=== PATIENT | female | born 1975 | race Caucasian/White ===

== ENCOUNTER 2018-01-04 21:07 | Emergency (ER) | payer MEDICAID, OTHER ==
[~2018-01-04] VITALS: Ht 160 cm; Wt 58.0 kg
[~2018-01-04 21:07] MED LIST: IBUP-1984 PO; NO HOME MEDS; ONDA8TAB6 PO
[2018-01-04 21:11] VITALS: BP 135/79
[2018-01-04] MEDS ORDERED: CYCL-1 PO (21:29)
[2018-01-04] MEDS ORDERED: ketorolac trometh inj. 60 MG/2 ML VIAL IM ONE (21:30)
[2018-01-04] MEDS ORDERED: ketorolac trometh. 30mg/ml inj. IM ONE (21:40)
[2018-01-06] MEDS ORDERED: METH-360 PO (15:48)
== END 2018-01-04 21:51 | disposition home or self-care (01) ==
LOC: ER 21:09
DX: M54.2 Cervicalgia (principal); M79.1 Myalgia; K21.9 Gastro-esophageal reflux disease without esophagitis; G89.29 Other chronic pain; Z90.710 Acquired absence of both cervix and uterus
CPT/HCPCS: 96372; 99283; J1885

== ENCOUNTER 2018-05-30 12:07 | Emergency (ER) | payer MEDICAID, OTHER ==
[~2018-05-30] VITALS: Ht 160 cm; Wt 58.0 kg
[~2018-05-30 12:07] MED LIST changes: +CYCL-1 PO; +METH-360 PO
[2018-05-30 12:34] LABS: URINE HCG NEGATIVE (NEG)
[2018-05-30] MEDS ORDERED: normal saline 1000ML IV soln IV ONE (12:40)
[2018-05-30] MEDS ORDERED: ondansetron/PF 4mg/2ml inj IV ONE (12:40)
[2018-05-30 12:41] LABS: CLARITY,URINE CLEAR (Clear); COLOR,URINE YELLOW (Yellow); GLUCOSE, URINE NEGATIVE (Neg); KETONES,URINE NEGATIVE (Neg); LEUKOCYTE ESTERASE ,URINE NEGATIVE (Neg); NITRITES, URINE NEGATIVE (Neg); OCCULT BLOOD,URINE NEGATIVE (Neg); PROTEIN,URINE NEGATIVE (Neg); UROBILINOGEN,URINE 0.2 E.U/dL (0.2-1.0)
[2018-05-30 12:45] LABS: BASOPHILS # (AUTO) 0.1 X10'3 (0-0.2); BASOPHILS % (AUTO) 0.6 % (0-1); EOSINOPHILS # (AUTO) 0.1 X10'3 (0-0.9); EOSINOPHILS % (AUTO) 1.1 % (0-6); HEMATOCRIT 42.2 % (35.0-45.0); HEMOGLOBIN 14.7 g/dl (12.0-16.0); LYMPHOCYTES # (AUTO) 2.9 X10'3 (1.1-4.8); MEAN CORPUSCULAR HEMOGLOBIN 35.1 PG (27.0-31.0); MEAN CORPUSCULAR HGB CONC 34.9 % (33.0-36.5); MEAN CORPUSCULAR VOLUME 100.5 FL (78-98); MONOCYTES # (AUTO) 0.6 X10'3 (0-0.9); MONOCYTES % (AUTO) 5.5 % (2-12); NEUTROPHILS # (AUTO) 6.5 X10'3 (1.8-7.7); NEUTROPHILS % (AUTO) 63.8 % (42-75); PLATELET COUNT 231 X10'3 (140-440); RED CELL DISTRIBUTION WIDTH 14.1 % (11.5-14.5); WHITE BLOOD COUNT 10.2 X10'3 (4.5-11.0)
[2018-05-30 12:46] LABS: UA COLLECTION TYPE CLN CATCH MIDSTREAM
[2018-05-30] MEDS ORDERED: OMEP20CA10 PO (12:47)
[2018-05-30 12:55] LABS: INR 0.9 INR; PROTHROMBIN TIME 9.8 SECONDS (9.0-12.0)
[2018-05-30 13:00] LABS: ALANINE AMINOTRANSFERASE 18 U/L (12-78); ALBUMIN 3.9 G/DL (3.4-5.0); ALBUMIN/GLOBULIN RATIO 1.3 (1.1-1.5); ALKALINE PHOSPHATASE 62 IU/L (46-116); ANION GAP 10 (8-16); ASPARTATE AMINO TRANSFERASE 10 U/L (10-37); BILIRUBIN,TOTAL 0.3 MG/DL (0.1-1.0); BLOOD UREA NITROGEN 14 MG/DL (7-18); BUN/CREATININE RATIO 17.5 (6.6-38.0); CALCIUM 9.5 MG/DL (8.5-10.1); CHLORIDE 104 MMOL/L (99-107); GLUCOSE 89 MG/DL (70-104); LIPASE 141 U/L (73-393); POTASSIUM 3.9 MMOL/L (3.5-5.1); SODIUM 140 MMOL/L (135-145); TOTAL CARBON DIOXIDE 25.8 MMOL/L (24-32); TOTAL PROTEIN 6.9 G/DL (6.4-8.2); eGFR 79 ML/MIN
[2018-05-30] MEDS: morphine 4 MG/ML inj SYRINge IV PRN ×2 (13:03→13:32)
[2018-05-30] MEDS ORDERED: ketorolac trometh. 30mg/ml inj. IV ONE (13:25)
[2018-05-30] MEDS ORDERED: HYDROcodone/acetaminophen 5mg/325mg tablet PO ONE (14:25)
[2018-05-30 14:31] VITALS: BP 120/63
[2018-05-30] MEDS ORDERED: KETO10TA2 PO (15:23)
[2018-05-30] MEDS ORDERED: HYDR-569 PO (15:23)
[2018-05-30] MEDS ORDERED: ONDA4TAB9 SL (15:23)
== END 2018-05-30 15:59 | disposition home or self-care (01) ==
LOC: ER 12:08
DX: N83.201 Unspecified ovarian cyst, right side (principal); R10.31 Right lower quadrant pain; R10.11 Right upper quadrant pain; K21.9 Gastro-esophageal reflux disease without esophagitis; G89.29 Other chronic pain; Z90.710 Acquired absence of both cervix and uterus; Z90.89 Acquired absence of other organs; Z79.899 Other long term (current) drug therapy
CPT/HCPCS: 36415; 74176; 76856; 80053; 81003; 81025; 83605; 83690; 85025; 85610; 87040; 96361; 96374; 96375; 99285; J2270; J2405; J7030

== ENCOUNTER 2018-06-07 19:59 | Emergency (ER) | payer MEDICAID, OTHER ==
[~2018-06-07] VITALS: Ht 160 cm; Wt 59.1 kg
[~2018-06-07 19:59] MED LIST changes: -CYCL-1 PO; +HYDR-569 PO; -IBUP-1984 PO; +KETO10TA2 PO; -METH-360 PO; -NO HOME MEDS; +OMEP20CA10 PO; -ONDA8TAB6 PO
[2018-06-07 21:02] LABS: URINE HCG NEGATIVE (NEG)
[2018-06-07 21:10] LABS: CLARITY,URINE SLIGHTLY CLOUDY (Clear); COLOR,URINE YELLOW (Yellow); GLUCOSE, URINE NEGATIVE (Neg); KETONES,URINE NEGATIVE (Neg); LEUKOCYTE ESTERASE ,URINE NEGATIVE (Neg); NITRITES, URINE NEGATIVE (Neg); OCCULT BLOOD,URINE NEGATIVE (Neg); PH,URINE 5.5 (4.8-8.0); PROTEIN,URINE NEGATIVE (Neg); UROBILINOGEN,URINE 0.2 E.U/dL (0.2-1.0)
[2018-06-07 21:11] LABS: UA COLLECTION TYPE CLN CATCH MIDSTREAM
[2018-06-07 21:19] LABS: RBC,URINE 0-2 /HPF (0-2); SQUAMOUS EPITHELIAL CELL,UR MANY /LPF (FEW); WBC,URINE 0-4 /HPF (0-4)
[2018-06-07 21:20] LABS: BACTERIA,URINE 1+ /HPF (Neg); MUCUS STRANDS FEW /LPF (Neg)
[2018-06-07 21:23] LABS: BASOPHILS # (AUTO) 0.1 X10'3 (0-0.2); BASOPHILS % (AUTO) 0.9 % (0-1); EOSINOPHILS # (AUTO) 0.1 X10'3 (0-0.9); EOSINOPHILS % (AUTO) 1.6 % (0-6); HEMATOCRIT 42.6 % (35.0-45.0); HEMOGLOBIN 14.8 g/dl (12.0-16.0); LYMPHOCYTES # (AUTO) 3.2 X10'3 (1.1-4.8); MEAN CORPUSCULAR HGB CONC 34.7 % (33.0-36.5); MEAN CORPUSCULAR VOLUME 100.8 FL (78-98); MEAN PLATELET VOLUME 8.2 FL (7.4-10.4); MONOCYTES # (AUTO) 0.4 X10'3 (0-0.9); MONOCYTES % (AUTO) 4.6 % (2-12); NEUTROPHILS # (AUTO) 5.1 X10'3 (1.8-7.7); NEUTROPHILS % (AUTO) 56.9 % (42-75); PLATELET COUNT 222 X10'3 (140-440); RED BLOOD COUNT 4.23 X10'6 (4.20-5.60); RED CELL DISTRIBUTION WIDTH 14.2 % (11.5-14.5)
[2018-06-07 21:32] LABS: PROTHROMBIN TIME 9.9 SECONDS (9.0-12.0)
[2018-06-07 21:37] LABS: ALANINE AMINOTRANSFERASE 29 U/L (12-78); ALBUMIN/GLOBULIN RATIO 1.3 (1.1-1.5); ALKALINE PHOSPHATASE 63 IU/L (46-116); ANION GAP 8 (8-16); ASPARTATE AMINO TRANSFERASE 17 U/L (10-37); BILIRUBIN,TOTAL 0.2 MG/DL (0.1-1.0); BLOOD UREA NITROGEN 15 MG/DL (7-18); BUN/CREATININE RATIO 17.4 (6.6-38.0); CALCIUM 9.1 MG/DL (8.5-10.1); CHLORIDE 105 MMOL/L (99-107); CREATININE 0.86 MG/DL (0.40-0.90); GLUCOSE 100 MG/DL (70-104); SODIUM 138 MMOL/L (135-145); TOTAL CARBON DIOXIDE 25.2 MMOL/L (24-32); eGFR 72 ML/MIN
[2018-06-07 22:21] LABS: ETHANOL < 0.010 GM/DL (0.0-0.010)
[2018-06-07 22:39] LABS: URINE AMPHETAMINE SCREEN NEGATIVE (Neg); URINE BARBITUATE SCREEN NEGATIVE (Neg); URINE BENZODIAZEPINES SCREEN NEGATIVE (Neg); URINE CANNABINOID SCREEN NEGATIVE (Neg); URINE COCAINE SCREEN NEGATIVE (Neg); URINE METHADONE SCREEN NEGATIVE (Neg); URINE OPIATE SCREEN POSITIVE (Neg); URINE PHENCYCLIDINE SCREEN NEGATIVE (Neg)
[2018-06-07] MEDS ORDERED: HYDR-569 PO (22:48)
[2018-06-07] MEDS ORDERED: HYDROcodone/acetaminophen 10/325mg tab PO ONE (22:50)
[2018-06-07 23:27] VITALS: BP 92/62
== END 2018-06-07 23:27 | disposition home or self-care (01) ==
LOC: ER 20:00
DX: R10.9 Unspecified abdominal pain (principal); K21.9 Gastro-esophageal reflux disease without esophagitis; G89.29 Other chronic pain; Z90.710 Acquired absence of both cervix and uterus; Z90.89 Acquired absence of other organs
CPT/HCPCS: 36415; 80053; 80305; 80320; 81001; 81025; 85025; 85610; 99284

== ENCOUNTER 2018-11-11 14:24 | Emergency (ER) | payer SELFPAY ==
[~2018-11-11] VITALS: Ht 160 cm; Wt 56.0 kg
[~2018-11-11 14:24] MED LIST changes: +HYDR-4383 PO; -HYDR-569 PO
[2018-11-11] MEDS ORDERED: ondansetron 4mg rapidly disintigrating tab PO ONE (15:10)
[2018-11-11] MEDS ORDERED: morphine 4 MG/ML inj SYRINge IM ONE (15:10)
--- NOTE | 2018-11-11 15:24 | NUR ---
OK PER DR BRAVO TO GIVE MORPHINE IV. 4MG GIVEN IV, PT REPORT FEELING TIGHTAND NOT WANTING THE OTHER DOSE. THE OTHER 4 MG WASTED WTH OLIVERIO CONROY.
[2018-11-11 15:57] LABS: URINE HCG NEGATIVE (NEG)
[2018-11-11] MEDS ORDERED: HYDROcodone/acetaminophen 10/325mg tab PO ONE (16:10)
[2018-11-11] MEDS ORDERED: OXYC-150 PO (16:23)
[2018-11-11] MEDS ORDERED: IBUP-1984 PO (16:23)
--- NOTE | 2018-11-11 16:40 | NUR ---
patient wanted morphine 4mg-that was wasted earlier,obtained a verbal order for morphine 4mg iv from dr. kate.
[2018-11-11] MEDS ORDERED: morphine 4 MG/ML inj SYRINge IV ONE (16:45)
[2018-11-11 17:01] VITALS: BP 131/71
== END 2018-11-11 17:03 | disposition home or self-care (01) ==
LOC: ER 14:24
DX: S30.0XXA Contusion of lower back and pelvis, initial encounter (principal); G89.29 Other chronic pain; K21.9 Gastro-esophageal reflux disease without esophagitis; Z90.710 Acquired absence of both cervix and uterus; Z90.89 Acquired absence of other organs; Z79.899 Other long term (current) drug therapy; W10.9XXA Fall (on) (from) unspecified stairs and steps, initial encounter; Y93.01 Activity, walking, marching and hiking; Y92.89 Other specified places as the place of occurrence of the external cause; Y99.8 Other external cause status
CPT/HCPCS: 72170; 72220; 81025; 96372; 96374; 99284; J2270

== ENCOUNTER 2019-07-10 14:13 | Emergency (ER) | payer SELFPAY ==
[~2019-07-10] VITALS: Ht 160 cm; Wt 55.0 kg
[~2019-07-10 14:13] MED LIST changes: -OMEP20CA10 PO; +OMEP20CA11 PO; +OXYC-150 PO
[2019-07-10 15:08] LABS: BASOPHILS % (AUTO) 0.6 % (0-1); EOSINOPHILS % (AUTO) 0.5 % (0-6); HEMATOCRIT 39.2 % (35.0-45.0); HEMOGLOBIN 13.7 g/dl (12.0-16.0); LYMPHOCYTES # (AUTO) 2.3 X10'3 (1.1-4.8); MEAN CORPUSCULAR HEMOGLOBIN 34.6 PG (27.0-31.0); MEAN CORPUSCULAR HGB CONC 35.1 g/dL (33.0-36.5); MEAN CORPUSCULAR VOLUME 98.6 FL (78-98); MEAN PLATELET VOLUME 8.3 FL (7.4-10.4); MONOCYTES # (AUTO) 0.6 X10'3 (0-0.9); MONOCYTES % (AUTO) 7.4 % (2-12); NEUTROPHILS # (AUTO) 5.4 X10'3 (1.8-7.7); NEUTROPHILS % (AUTO) 64.5 % (42-75); PLATELET COUNT 243 X10'3 (140-440); RED BLOOD COUNT 3.98 X10'6 (4.20-5.60); RED CELL DISTRIBUTION WIDTH 13.6 % (11.5-14.5); WHITE BLOOD COUNT 8.4 X10'3 (4.5-11.0)
[2019-07-10 15:18] LABS: PARTIAL THROMBOPLASTIN TIME 28 SECONDS (22-32)
[2019-07-10 15:21] LABS: ALANINE AMINOTRANSFERASE 25 U/L (12-78); ALBUMIN 4.1 G/DL (3.4-5.0); ALBUMIN/GLOBULIN RATIO 1.3 (1.1-1.5); ALKALINE PHOSPHATASE 51 IU/L (46-116); ANION GAP 7 (8-16); ASPARTATE AMINO TRANSFERASE 15 U/L (10-37); BILIRUBIN,TOTAL 1.1 MG/DL (0.1-1.0); BLOOD UREA NITROGEN 7 MG/DL (7-18); BUN/CREATININE RATIO 9.7 (6.6-38.0); CALCIUM 9.2 MG/DL (8.5-10.1); CHLORIDE 106 MMOL/L (99-107); CREATININE 0.72 MG/DL (0.40-0.90); GLUCOSE 106 MG/DL (70-104); POTASSIUM 3.9 MMOL/L (3.5-5.1); SODIUM 141 MMOL/L (135-145); TOTAL CARBON DIOXIDE 28.1 MMOL/L (24-32); TOTAL PROTEIN 7.2 G/DL (6.4-8.2); eGFR 88 ML/MIN
[2019-07-10] MEDS ORDERED: triamcinolone acetonide 40mg/ml inj IM ONE (18:05)
[2019-07-10] MEDS ORDERED: ketorolac tromethamine 15mg/ml inj. IM ONE (18:05)
[2019-07-10] MEDS ORDERED: ALBU18HF2 INH (18:29)
[2019-07-10 18:35] VITALS: BP 112/72
== END 2019-07-10 18:36 | disposition home or self-care (01) ==
LOC: ER 14:13
DX: R07.89 Other chest pain (principal); R42 Dizziness and giddiness; K21.9 Gastro-esophageal reflux disease without esophagitis; G89.29 Other chronic pain; Z90.710 Acquired absence of both cervix and uterus; Z98.890 Other specified postprocedural states; Z79.899 Other long term (current) drug therapy
CPT/HCPCS: 36415; 71045; 80053; 84484; 85025; 85610; 85730; 93005; 96372; 99284; J1885; J3301

== ENCOUNTER 2019-07-13 02:06 | Emergency (ER) | payer SELFPAY ==
[~2019-07-13] VITALS: Ht 160 cm; Wt 56.8 kg
[~2019-07-13 02:06] MED LIST changes: +ALBU18HF2 INH
--- NOTE | 2019-07-13 02:29 | NUR ---
DISCUSSED PT'S INCONGRUENT PRESENTATION AND RATIONAL FOR NOT ORDERING [facility] PROTOCOL WITH [facility]. AMILCAR FITZGERALD RECALLS TX PT 2 DAYS AGO AND AGREED PRESENTATION @ THAT TIME INCLUDED A SIGNIFICANT PSYCH COMPONENT.
[2019-07-13] MEDS ORDERED: ketorolac trometh. 30mg/ml inj. IV ONE (04:30)
[2019-07-13 05:07] LABS: BASOPHILS # (AUTO) 0.1 X10'3 (0-0.2); BASOPHILS % (AUTO) 0.6 % (0-1); EOSINOPHILS # (AUTO) 0.1 X10'3 (0-0.9); EOSINOPHILS % (AUTO) 0.7 % (0-6); HEMATOCRIT 33.5 % (35.0-45.0); HEMOGLOBIN 11.8 g/dl (12.0-16.0); LYMPHOCYTES # (AUTO) 2.1 X10'3 (1.1-4.8); LYMPHOCYTES % (AUTO) 24.4 % (21-51); MEAN CORPUSCULAR HEMOGLOBIN 34.6 PG (27.0-31.0); MEAN CORPUSCULAR HGB CONC 35.2 g/dL (33.0-36.5); MEAN CORPUSCULAR VOLUME 98.2 FL (78-98); MEAN PLATELET VOLUME 8.4 FL (7.4-10.4); MONOCYTES # (AUTO) 0.5 X10'3 (0-0.9); MONOCYTES % (AUTO) 6.2 % (2-12); NEUTROPHILS # (AUTO) 5.8 X10'3 (1.8-7.7); NEUTROPHILS % (AUTO) 68.1 % (42-75); PLATELET COUNT 216 X10'3 (140-440); RED BLOOD COUNT 3.41 X10'6 (4.20-5.60); RED CELL DISTRIBUTION WIDTH 13.1 % (11.5-14.5); WHITE BLOOD COUNT 8.5 X10'3 (4.5-11.0)
[2019-07-13 05:20] LABS: ALANINE AMINOTRANSFERASE 20 U/L (12-78); ALBUMIN 3.8 G/DL (3.4-5.0); ALBUMIN/GLOBULIN RATIO 1.5 (1.1-1.5); ALKALINE PHOSPHATASE 44 IU/L (46-116); ANION GAP 9 (8-16); ASPARTATE AMINO TRANSFERASE 11 U/L (10-37); BLOOD UREA NITROGEN 7 MG/DL (7-18); C-REACTIVE PROTEIN 0.15 MG/DL (0.0-0.5); CALCIUM 8.3 MG/DL (8.5-10.1); CHLORIDE 99 MMOL/L (99-107); CREATININE 0.54 MG/DL (0.40-0.90); GLUCOSE 92 MG/DL (70-104); MAGNESIUM 1.5 MG/DL (1.5-2.4); PHOSPHORUS 3.6 MG/DL (2.3-4.5); POTASSIUM 3.2 MMOL/L (3.5-5.1); SODIUM 132 MMOL/L (135-145); TOTAL PROTEIN 6.3 G/DL (6.4-8.2); eGFR > 90 ML/MIN
[2019-07-13] MEDS ORDERED: normal saline 1000ML IV soln IVB ONE (05:55)
[2019-07-13 07:19] VITALS: BP 101/57
== END 2019-07-13 07:23 | disposition home or self-care (01) ==
LOC: ER 02:06
DX: R07.89 Other chest pain (principal); E86.0 Dehydration; R42 Dizziness and giddiness; R35.0 Frequency of micturition; R06.00 Dyspnea, unspecified; K21.9 Gastro-esophageal reflux disease without esophagitis; G89.29 Other chronic pain; Z90.710 Acquired absence of both cervix and uterus; Z90.89 Acquired absence of other organs; Z79.899 Other long term (current) drug therapy
CPT/HCPCS: 36415; 71045; 80053; 83735; 84100; 84484; 85025; 85610; 86140; 93005; 96361; 96374; 99284; J1885; J7030

== ENCOUNTER 2019-10-11 01:13 | Emergency (ER) | payer OTHER ==
[~2019-10-11] VITALS: Ht 160 cm; Wt 55.9 kg
[~2019-10-11 01:13] MED LIST changes: +OMEP-297 PO; -OMEP20CA11 PO
[2019-10-11 01:41] LABS: CLARITY,URINE CLEAR (Clear); COLOR,URINE YELLOW (Yellow); GLUCOSE, URINE NEGATIVE (Neg); KETONES,URINE NEGATIVE (Neg); LEUKOCYTE ESTERASE ,URINE NEGATIVE (Neg); NITRITES, URINE NEGATIVE (Neg); OCCULT BLOOD,URINE NEGATIVE (Neg); PROTEIN,URINE NEGATIVE (Neg); UA COLLECTION TYPE CLN CATCH MIDSTREAM; UROBILINOGEN,URINE 0.2 E.U/dL (0.2-1.0)
[2019-10-11 02:17] LABS: BASOPHILS % (AUTO) 0.9 % (0-1); EOSINOPHILS % (AUTO) 0.4 % (0-6); HEMATOCRIT 37.3 % (35.0-45.0); HEMOGLOBIN 13.4 g/dl (12.0-16.0); LYMPHOCYTES # (AUTO) 1.1 X10'3 (1.1-4.8); LYMPHOCYTES % (AUTO) 24.8 % (21-51); MEAN CORPUSCULAR HEMOGLOBIN 34.8 PG (27.0-31.0); MEAN CORPUSCULAR HGB CONC 35.8 g/dL (33.0-36.5); MEAN CORPUSCULAR VOLUME 97.2 FL (78-98); MEAN PLATELET VOLUME 7.6 FL (7.4-10.4); MONOCYTES # (AUTO) 0.8 X10'3 (0-0.9); MONOCYTES % (AUTO) 18.4 % (2-12); NEUTROPHILS # (AUTO) 2.5 X10'3 (1.8-7.7); NEUTROPHILS % (AUTO) 55.5 % (42-75); PLATELET COUNT 196 X10'3 (140-440); RED BLOOD COUNT 3.84 X10'6 (4.20-5.60); RED CELL DISTRIBUTION WIDTH 12.8 % (11.5-14.5); WHITE BLOOD COUNT 4.5 X10'3 (4.5-11.0)
--- NOTE | 2019-10-11 02:25 | NUR ---
URINE COLLETED AND LABS DRAWN. PT REPROTS A HISTORY OF BARRETS ESOPHAGUS AND IS FOLLOWED BY DR. GARRETT. SHE STATES THE ABD PAIN TO RLQ HAS BEEN GOING ON FOR APROX 2 MONTHS AND THAT SHE WAS DIAGNOSED WITH THE SALMON[place]A 2 EEKS AGOA ND STARTED ON THE BACTRUM AND THE REEVALUTED BY HER PCP, TIMOTHY MATHIS. AND STARTED ON LEVOQUIN 3 DAYS AGO (TUESDAY) SHE STATES SYMPTOMS CONTINUE TO GET WORSE. PT AWATING ER .
[2019-10-11 02:32] LABS: ALANINE AMINOTRANSFERASE 27 U/L (12-78); ALBUMIN/GLOBULIN RATIO 1.4 (1.1-1.5); ALKALINE PHOSPHATASE 58 IU/L (46-116); ANION GAP 8 (8-16); ASPARTATE AMINO TRANSFERASE 14 U/L (10-37); BILIRUBIN,TOTAL 0.6 MG/DL (0.1-1.0); BLOOD UREA NITROGEN 9 MG/DL (7-18); BUN/CREATININE RATIO 10.1 (6.6-38.0); CHLORIDE 106 MMOL/L (99-107); CREATININE 0.89 MG/DL (0.40-0.90); GLUCOSE 101 MG/DL (70-104); LIPASE 65 U/L (73-393); POTASSIUM 3.7 MMOL/L (3.5-5.1); SODIUM 139 MMOL/L (135-145); TOTAL CARBON DIOXIDE 25.4 MMOL/L (24-32); TOTAL PROTEIN 6.9 G/DL (6.4-8.2); eGFR 69 ML/MIN
[2019-10-11] MEDS ORDERED: LORazepam 2 mg/ml vial IV ONE (02:45)
[2019-10-11] MEDS ORDERED: normal saline 1000ML IV soln IVB ONE (02:45)
[2019-10-11] MEDS: morphine 2 MG/ML inj. syringe IV PRN ×3 (03:55→05:16)
[2019-10-11 04:04] VITALS: BP 110/72
--- NOTE | 2019-10-11 04:09 | NUR ---
PIV placed after 3 attempts. Pt given msiv and ativan iv and 1st of [address] Grey updated and verbal received for zofran 4 mg iv.
[2019-10-11] MEDS ORDERED: ondansetron/PF 4mg/2ml inj IV ONE (04:15)
--- NOTE | 2019-10-11 04:20 | NUR ---
DR WU AT BEDSIDE TO TALK W PT ABOUT DISCHARGE INSTRUCTIONS.
== END 2019-10-11 05:23 | disposition home or self-care (01) ==
LOC: ER 01:14
DX: K59.00 Constipation, unspecified (principal); G89.29 Other chronic pain; R10.31 Right lower quadrant pain; R10.32 Left lower quadrant pain; K21.9 Gastro-esophageal reflux disease without esophagitis; Z87.891 Personal history of nicotine dependence; Z90.710 Acquired absence of both cervix and uterus; Z90.89 Acquired absence of other organs; Z88.6 Allergy status to analgesic agent; Z79.899 Other long term (current) drug therapy
CPT/HCPCS: 74022; 80053; 81003; 83690; 85025; 96374; 96375; 96376; 99284; J2060; J2270; J2405; J7030

== ENCOUNTER 2023-02-02 13:17 | Emergency (ER) | payer MEDICAID, OTHER ==
[~2023-02-02] VITALS: Ht 160 cm; Wt 65.0 kg
[~2023-02-02 13:17] MED LIST changes: -OMEP-297 PO; +OMEP20CA15 PO
[2023-02-02 13:25] VITALS: BP 140/110
[2023-02-02] MEDS ORDERED: ondansetron 4mg rapidly disintigrating tab PO ONE (14:05)
[2023-02-02] MEDS ORDERED: morphine 4 MG/ML inj SYRINge IM ONE (14:05)
--- NOTE | 2023-02-02 15:23 | NUR ---
PATIENT REQUESTING TORADOL SHOT, HER ALLERGY LIST MENTIONS NSAIDS BUT PT STATES THIS IS ONLY APPLICABLE TO ORAL NSAIDS WHICH IRRITATE HER STOMACH LINING AND THAT SHE HAS TAKEN TORADOL INJECTIONS WITHOUT ISSUE. PER SERGEY FITZGERALD IT IS OKAY TO GIVE TORADOL IM
[2023-02-02] MEDS ORDERED: ketorolac tromethamine 15mg/ml inj. IM ONE (15:25)
[2023-02-02] MEDS ORDERED: LORazepam 1 MG tablet PO ONE (17:15)
[2023-02-02] MEDS ORDERED: METH4TAB3 PO (18:48)
[2023-02-02] MEDS ORDERED: OXYC-150 PO (18:48)
== END 2023-02-02 18:59 | disposition home or self-care (01) ==
LOC: ER 13:18
DX: M51.26 Other intervertebral disc displacement, lumbar region (principal); G89.29 Other chronic pain; M54.9 Dorsalgia, unspecified; K21.9 Gastro-esophageal reflux disease without esophagitis; Z90.49 Acquired absence of other specified parts of digestive tract; Z88.6 Allergy status to analgesic agent; Z88.8 Allergy status to other drugs, medicaments and biological substances; Z79.899 Other long term (current) drug therapy; Z79.1 Long term (current) use of non-steroidal anti-inflammatories (NSAID); Z79.2 Long term (current) use of antibiotics
CPT/HCPCS: 72131; 72148; 96372; 99285; J1885; J2270

== ENCOUNTER 2023-04-14 17:13 | Emergency (ER) | payer MEDICAID ==
[~2023-04-14] VITALS: Ht 160 cm; Wt 63.6 kg
[~2023-04-14 17:13] MED LIST changes: +METH4TAB3 PO
[2023-04-14 17:22] VITALS: BP 149/85
[2023-04-14] MEDS ORDERED: ketorolac trometh inj. 60 MG/2 ML VIAL IM ONE (17:45)
[2023-04-14] MEDS ORDERED: HYDROcodone/acetaminophen 10/325mg tab PO ONE (17:45)
[2023-04-14] MEDS ORDERED: CYCL-1 PO (18:26)
== END 2023-04-14 18:39 | disposition home or self-care (01) ==
LOC: ER 17:13
DX: M54.59 Other low back pain (principal); M79.18 Myalgia, other site; K21.9 Gastro-esophageal reflux disease without esophagitis; Z90.49 Acquired absence of other specified parts of digestive tract; Z88.6 Allergy status to analgesic agent; Z79.899 Other long term (current) drug therapy; Z79.1 Long term (current) use of non-steroidal anti-inflammatories (NSAID); Z79.2 Long term (current) use of antibiotics
CPT/HCPCS: 72190; 96372; 99283; J1885

== ENCOUNTER 2023-09-06 11:38 | Emergency (ER) | payer BC, MEDICAID ==
[~2023-09-06] VITALS: Ht 160 cm; Wt 63.6 kg
[~2023-09-06 11:38] MED LIST changes: +CYCL-1 PO
[2023-09-06] MEDS ORDERED: ketorolac trometh. 30mg/ml inj. IM ONE (12:25)
[2023-09-06] MEDS ORDERED: BENZ-38 PO ×3 (12:37→13:11)
[2023-09-06] MEDS ORDERED: AZIT250T27 PO ×3 (12:37→13:11)
[2023-09-06 12:52] VITALS: BP 154/87; PULSE 78; RESP 16; O2SAT 98
[2023-09-06] MEDS ORDERED: CYCL-1 PO (13:11)
[2023-09-06 13:38] VITALS: TEMP 98.2
== END 2023-09-06 13:41 | disposition home or self-care (01) ==
LOC: ER 11:39
DX: J06.9 Acute upper respiratory infection, unspecified (principal); M94.0 Chondrocostal junction syndrome [Tietze]; K21.9 Gastro-esophageal reflux disease without esophagitis; G89.29 Other chronic pain; M54.9 Dorsalgia, unspecified; Z88.6 Allergy status to analgesic agent; Z79.899 Other long term (current) drug therapy
CPT/HCPCS: 71045; 96372; 99283; J1885

== ENCOUNTER 2024-08-20 14:00 | Emergency (ER) | payer BC, MEDICAID ==
[~2024-08-20] VITALS: Ht 160 cm; Wt 63.6 kg
[~2024-08-20 14:00] MED LIST changes: +AZIT250T27 PO; +BENZ-38 PO
[2024-08-20 14:04] VITALS: TEMP 97.8
[2024-08-20 14:49] LABS: BASOPHILS # (AUTO) 0.1 X10'3 (0-0.2); BASOPHILS % (AUTO) 1.2 % (0-1); EOSINOPHILS # (AUTO) 0.1 X10'3 (0-0.9); EOSINOPHILS % (AUTO) 0.9 % (0-6); HEMATOCRIT 40.5 % (35.0-45.0); HEMOGLOBIN 13.6 g/dl (12.0-16.0); LYMPHOCYTES # (AUTO) 2.9 X10'3 (1.1-4.8); LYMPHOCYTES % (AUTO) 35.6 % (21-51); MEAN CORPUSCULAR HEMOGLOBIN 32.8 PG (27.0-31.0); MEAN CORPUSCULAR HGB CONC 33.6 g/dL (33.0-36.5); MEAN CORPUSCULAR VOLUME 97.4 FL (78-98); MEAN PLATELET VOLUME 8.1 FL (7.4-10.4); MONOCYTES # (AUTO) 0.4 X10'3 (0-0.9); MONOCYTES % (AUTO) 4.5 % (2-12); NEUTROPHILS # (AUTO) 4.7 X10'3 (1.8-7.7); NEUTROPHILS % (AUTO) 57.8 % (42-75); PLATELET COUNT 262 X10'3 (140-440); RED BLOOD COUNT 4.15 X10'6 (4.20-5.60); RED CELL DISTRIBUTION WIDTH 13.9 % (11.5-14.5); WHITE BLOOD COUNT 8.1 X10'3 (4.5-11.0)
[2024-08-20 15:05] LABS: ALANINE AMINOTRANSFERASE 20 U/L (12-78); ALBUMIN 4.2 G/DL (3.4-5.0); ALBUMIN/GLOBULIN RATIO 1.4 (1.1-1.5); ALKALINE PHOSPHATASE 75 IU/L (46-116); ANION GAP 9 (8-16); ASPARTATE AMINO TRANSFERASE 16 U/L (10-37); BILIRUBIN,TOTAL 0.5 MG/DL (0.1-1.0); BLOOD UREA NITROGEN 6 MG/DL (7-18); BUN/CREATININE RATIO 7.7 (10.0-20.0); CALCIUM 8.8 MG/DL (8.5-10.1); CHLORIDE 101 MMOL/L (99-107); CREATININE 0.78 MG/DL (0.40-0.90); GLUCOSE 124 MG/DL (70-104); LIPASE 28 U/L (16-77); POTASSIUM 3.9 MMOL/L (3.5-5.1); SODIUM 134 MMOL/L (135-145); TOTAL CARBON DIOXIDE 24.4 MMOL/L (24-32); TOTAL PROTEIN 7.1 G/DL (6.4-8.2); eCRCL 73 ML/MIN; eGFR 79 ML/MIN
[2024-08-20] MEDS: HYDROcodone/acetaminophen 10/325mg tab PO ONE (17:03)
[2024-08-20] MEDS: normal saline 1000ml 1,000 ML IV ONE (17:04)
[2024-08-20] MEDS: diphenhydrAMINE 50 mg/ml inj IV ONE (17:04)
[2024-08-20] MEDS: metoclopramide 5 mg/ml inj IV ONE (17:04)
[2024-08-20] MEDS ORDERED: PRED20TA PO (17:15)
[2024-08-20 17:58] LABS: HCG SERUM QL NEGATIVE
[2024-08-20] MEDS: predniSONE 20 mg tablet PO ONE (18:13)
[2024-08-20 19:14] VITALS: BP 145/89; PULSE 89; RESP 16; O2SAT 96
== END 2024-08-20 19:17 | disposition home or self-care (01) ==
LOC: ER 14:01
DX: K51.90 Ulcerative colitis, unspecified, without complications (principal); K21.9 Gastro-esophageal reflux disease without esophagitis; G89.29 Other chronic pain; Z90.710 Acquired absence of both cervix and uterus; Z88.6 Allergy status to analgesic agent; Z79.899 Other long term (current) drug therapy
CPT/HCPCS: 36415; 74176; 80053; 83690; 84703; 85025; 96361; 96374; 96375; 99285; J1200; J2765; J7030; J7512